=== PATIENT | female | born 1955 | race Caucasian/White ===

== ENCOUNTER 2022-04-07 23:45 | Emergency (ER) | payer MEDICARE, OTHER ==
[~2022-04-07] VITALS: Ht 162.6 cm; Wt 76.8 kg
[2022-04-08 01:09] VITALS: BP 154/75; PULSE 85; TEMP 97.8
== END 2022-04-08 01:09 | disposition home or self-care (01) ==
LOC: COL.ER 23:45
DX: L76.34 Postprocedural seroma of skin and subcutaneous tissue following other procedure (principal); Z90.89 Acquired absence of other organs

== ENCOUNTER → 2022-05-26 | Outpatient (CLI) | payer MEDICARE, OTHER | LOC: COL.RAD 12:47 | DX: C73 Malignant neoplasm of thyroid gland (principal) | CPT/HCPCS: A9516 ==

== ENCOUNTER → 2022-06-23 | Outpatient (CLI) | payer MEDICARE, OTHER | LOC: COL.RAD 13:03 | DX: C73 Malignant neoplasm of thyroid gland (principal); Z92.3 Personal history of irradiation | CPT/HCPCS: A9517 ==